=== PATIENT | male | born 1960 | race Caucasian/White ===

== ENCOUNTER 2020-11-05 12:28 | Emergency (ER) | payer BC ==
--- NOTE | 2020-11-05 12:48 | EDM.PDOC ---
ED HPI GENERAL MEDICAL PROBLEM - General Chief Complaint: Trauma Stated Complaint: [facility] Time Seen by Provider: 11/05/20 12:48 - History of Present Illness INITIAL COMMENTS - FREE TEXT/NARRATIVE: 60-year-old male brought in by [facility] after sustaining a head injury and neck injury. Around 1030 this morning the patient was ice fishing he slipped and fell backwards striking the back of his head. Patient does not have significant pain but has noticed significant weakness in his hands and to a lesser degree in his lower extremities. Has had no loss of bowel or bladder control. Patient cannot recall if he had loss of consciousness. He did have a large hematoma form the back of his scalp left side and does have a laceration there. It has not been bleeding too bad. Patient denies drug use or alcohol use. Posterior Head Pain Score (Numeric/FACES): 2 - Related Data Allergies Allergy/AdvReac Type Severity Reaction Status Date / Time No Known Allergies Allergy Verified 11/05/20 12:43 Home Meds: Home Meds . [No Known Home Meds] 11/05/20 [History] Review of Systems - Review of Systems Review Of Systems: See Below Constitutional: Reports: No Symptoms Eyes: Reports: No Symptoms Ears: Reports: No Symptoms Nose: Reports: No Symptoms Mouth/Throat: Reports: No Symptoms Respiratory: Reports: No Symptoms Cardiovascular: Reports: No Symptoms GI/Abdominal: Reports: No Symptoms Genitourinary: Reports: No Symptoms Musculoskeletal: Reports: Neck Pain Skin: Reports: No Symptoms Neurological: Reports: Headache, Weakness. Denies: Pre-Existing Deficit, Seizure, Syncope ED EXAM, GENERAL - Physical Exam Exam: See Below Exam Limited By: No Limitations General Appearance: Alert, No Apparent Distress, Other (Arrives with c-collar in place via EMS. The patient was logrolled with the assistance of several staff members early in the exam process to examine his back and what was accessible on his neck.) Eye Exam: Bilateral Eye: EOMI, Normal Inspection, Periorbital Changes Ears: Normal External Exam, Normal Canal, Hearing Grossly Normal, Normal TMs Nose: Normal Inspection, Normal Mucosa, No Blood Throat/Mouth: Normal Inspection, Normal Lips, Normal Teeth, Normal Gums, Normal Oropharynx, Normal Voice, No Airway Compromise Head: Other (He has a hematoma developing in the left occipital area no crepitation with palpation of the scalp is a laceration over the hematoma) Neck: Other (Collar in place no palpable bony tenderness however in the accessible areas) Respiratory/Chest: No Respiratory Distress, Lungs Clear, Normal Breath Sounds Cardiovascular: Normal Peripheral Pulses, Regular Rate, Rhythm, No Edema, No Mur mur GI/Abdominal: Normal Bowel Sounds, Soft, Non-Tender Back Exam: Normal Inspection, Other (The patient because of weakness is unable to completely sit up on his own and it is difficult with assistance.). No: CVA Tenderness (L), CVA Tenderness (R), Vertebral Tenderness Extremities: Normal Inspection, Other (His weakness in his distal upper extremities and his feet and lower legs seem to be weaker than they should be) Psychiatric: Normal Affect, Normal Mood Lymphatic: No Adenopathy Course - Vital Signs Last Recorded V/S: Last Vital Signs Temp 36.8 C 11/05/20 12:34 Pulse 98 11/05/20 12:34 Resp 14 11/05/20 12:34 BP 155/101 H 11/05/20 12:34 Pulse Ox 94 L 11/05/20 12:34 - Orders/Labs/Meds Orders: Active Orders 24 hr Category Date Time Status Vaccines to be Administered [RC] PER UNIT ROUTINE Care 11/05/20 15:37 Ordered CORONAVIRUS COVID-19 HERLINDA [MOLEC] Stat Lab 11/05/20 15:15 Ordered Dextrose 5%-Lactated Ringers @ 125 MLS/HR(1,000ml) Med 11/05/20 15:45 Ordered Dextrose 5%-Lactated Ringers 1,000 ml IV ASDIRECTED Medication Orders Dextrose/Lactated Ringer's (Dextrose 5%-Lactated Ringers) 1,000 mls @ 125 mls/hr IV ASDIRECTED ISABELA Labs: Laboratory Tests 11/05/20 11/05/20 11/05/20 Range/Units 13:29 13:29 13:29 WBC 13.36 H (4.23-9.07) K/mm3 RBC 5.05 (4.63-6.08) M/mm3 Hgb 14.7 (13.7-17.5) gm/dl Hct 44.1 (40.1-51.0) % MCV 87.3 (79.0-92.2) fl MCH 29.1 (25.7-32.2) pg MCHC 33.3 (32.2-35.5) g/dl RDW Std Deviation 43.9 (35.1-43.9) fL Plt Count 252 (163-337) K/mm3 MPV 9.6 (9.4-12.3) fl Neut % (Auto) 86.0 H (34.0-67.9) % Lymph % (Auto) 5.7 L (21.8-53.1) % [place] % (Auto) 7.9 (5.3-12.2) % Eos % (Auto) 0.1 L (0.8-7.0) Baso % (Auto) 0.2 (0.1-1.2) % Neut # (Auto) 11.47 H (1.78-5.38) K/mm3 Lymph # (Auto) 0.76 L (1.32-3.57) K/mm3 [place] # (Auto) 1.06 H (0.30-0.82) K/mm3 Eos # (Auto) 0.02 L (0.04-0.54) K/mm3 Baso # (Auto) 0.03 (0.01-0.08) K/mm3 Manual Slide Review Abnormal smear PT 10.9 (9.7-12.0) SECONDS INR 1.02 APTT 25.4 (21.7-31.4) SECONDS Sodium 137 (136-145) mEq/L Potassium 3.9 (3.5-5.1) mEq/L Chloride 103 (98-107) mEq/L Carbon Dioxide 25 (21-32) mEq/L Anion Gap 12.9 (5-15) BUN 17 (7-18) mg/dL Creatinine 1.1 (0.7-1.3) mg/dL Est Cr Clr Drug Dosing 76.06 mL/min Estimated GFR (MDRD) > 60 (>60) mL/min BUN/Creatinine Ratio 15.5 (14-18) Glucose 121 H (74-106) mg/dL Calcium 9.4 (8.5-10.1) mg/dL Total Bilirubin 0.6 (0.2-1.0) mg/dL AST 27 (15-37) U/L ALT 61 (16-63) U/L Alkaline Phosphatase 114 (46-116) U/L Total Protein 7.0 (6.4-8.2) g/dl Albumin 3.8 (3.4-5.0) g/dl Globulin 3.2 gm/dL Albumin/Globulin Ratio 1.2 (1-2) Urine Color (Yellow) Urine Appearance (Clear) Urine pH (5.0-8.0) Ur Specific [place] (1.005-1.030) Urine Protein (Negative) Urine Glucose (UA) (Negative) Urine Ketones (Negative) Urine Occult Blood (Negative) Urine Nitrite (Negative) Urine Bilirubin (Negative) Urine Urobilinogen (0.2-1.0) Ur Leukocyte Esterase (Negative) Ethyl Alcohol 0.00 (0.00) gm% 11/05/20 Range/Units 14:48 WBC (4.23-9.07) K/mm3 RBC (4.63-6.08) M/mm3 Hgb (13.7-17.5) gm/dl Hct (40.1-51.0) % MCV (79.0-92.2) fl MCH (25.7-32.2) pg MCHC (32.2-35.5) g/dl RDW Std Deviation (35.1-43.9) fL Plt Count (163-337) K/mm3 MPV (9.4-12.3) fl Neut % (Auto) (34.0-67.9) % Lymph % (Auto) (21.8-53.1) % [place] % (Auto) (5.3-12.2) % Eos % (Auto) (0.8-7.0) Baso % (Auto) (0.1-1.2) % Neut # (Auto) (1.78-5.38) K/mm3 Lymph # (Auto) (1.32-3.57) K/mm3 [place] # (Auto) (0.30-0.82) K/mm3 Eos # (Auto) (0.04-0.54) K/mm3 Baso # (Auto) (0.01-0.08) K/mm3 Manual Slide Review PT (9.7-12.0) SECONDS INR APTT (21.7-31.4) SECONDS Sodium (136-145) mEq/L Potassium (3.5-5.1) mEq/L Chloride (98-107) mEq/L Carbon Dioxide (21-32) mEq/L Anion Gap (5-15) BUN (7-18) mg/dL Creatinine (0.7-1.3) mg/dL Est Cr Clr Drug Dosing mL/min Estimated GFR (MDRD) (>60) mL/min BUN/Creatinine Ratio (14-18) Glucose (74-106) mg/dL Calcium (8.5-10.1) mg/dL Total Bilirubin (0.2-1.0) mg/dL AST (15-37) U/L ALT (16-63) U/L Alkaline Phosphatase (46-116) U/L Total Protein (6.4-8.2) g/dl Albumin (3.4-5.0) g/dl Globulin gm/dL Albumin/Globulin Ratio (1-2) Urine Color Yellow (Yellow) Urine Appearance Clear (Clear) Urine pH 6.5 (5.0-8.0) Ur Specific [place] 1.020 (1.005-1.030) Urine Protein Negative (Negative) Urine Glucose (UA) Negative (Negative) Urine Ketones 2+ H (Negative) Urine Occult Blood Negative (Negative) Urine Nitrite Negative (Negative) Urine Bilirubin Negative (Negative) Urine Urobilinogen 0.2 (0.2-1.0) Ur Leukocyte Esterase Negative (Negative) Ethyl Alcohol (0.00) gm% Meds: Medications Generic Name Dose Route Start Last Admin Trade Name Freq PRN Reason Stop Dose Admin Dextrose/Lactated Ringer's 1,000 mls @ 125 mls/hr 11/05/20 15:45 Dextrose 5%-Lactated Ringers IV ASDIRECTED ISABELA Discontinued Medications Generic Name Dose Route Start Last Admin Trade Name Freq PRN Reason Stop Dose Admin Dexamethasone 10 mg 11/05/20 15:19 Decadron IVPUSH 11/05/20 15:20 ONETIME ONE Diphtheria/Tetanus/Acell Pertussis 0.5 ml 11/05/20 15:36 Adacel IM 11/05/20 15:37 .ONCE ONE - Re-Assessments/Exams Free Text/Narrative Re-Assessment/Exam: 11/05/20 15:43 The labs are really not to contributory. The patient has a laceration versus abrasion on the left occipital area nothing appreciated needs to be repaired at this time however we have limited staff for keeping him in that position and stabilizing his C-spine at the same time so I reported this to 1 call at [facility]. I did talk to Dr. Zepeda who recommended given 10 mg of Decadron and then 6 mg every 4 hours to have the patient transferred to the emergency room where he can have an MRI obtained. This is been set up his head CT was unremarkable for acute changes he is got some age-related degeneration change noted on his C-spine this concerning for no acute fracture however he is got very prominent posterior spurring causing severe central canal stenosis at C2-3 through C7-T1 and mild posterior neural central stenosis is noted at T1-T2 lumbar spine CT is unremarkable chest abdomen pelvis CT is unremarkable for acute changes. He is got some degenerative changes noted throughout but nothing that should be causing his symptoms. Dr. Field is the accepting physician at the emergency room at [facility] and [facility]. 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 - Discharge Information Forms: ED Department Discharge Sepsis Event Note (ED) - Evaluation Sepsis Screening Result: No Definite Risk - Focused Exam Vital Signs: Vital Signs Temp Pulse Resp BP Pulse Ox 11/05/20 12:34 36.8 C 98 14 155/101 H 94 L - My Orders Last 24 Hours: My Active Orders 11/05/20 15:15 CORONAVIRUS COVID-19 HERLINDA [MOLEC] Stat 11/05/20 15:37 Vaccines to be Administered [RC] PER UNIT ROUTINE 11/05/20 15:45 Dextrose 5%-Lactated Ringers @ 125 MLS/HR(1,000ml) Dextrose 5%-Lactated Ringers 1,000 ml IV ASDIRECTED - Assessment/Plan Last 24 Hours: My Active Orders 11/05/20 15:15 CORONAVIRUS COVID-19 HERLINDA [MOLEC] Stat 11/05/20 15:37 Vaccines to be Administered [RC] PER UNIT ROUTINE 11/05/20 15:45 Dextrose 5%-Lactated Ringers @ 125 MLS/HR(1,000ml) Dextrose 5%-Lactated Ringers 1,000 ml IV ASDIRECTED
--- NOTE | 2020-11-05 14:49 | CT ---
CT cervical spine Technique: Multiple axial sections were obtained from above C1 inferiorly to the bottom of T2. Reconstructed coronal and sagittal images were obtained. Comparison: No previous study. Findings: Degenerative change is noted between the dens and anterior arch of C1. Mild disc space narrowing is noted at C4-5, C5-6 and C6-7. Diffuse posterior osteophytes are seen from C2-3 through T1-2. Slight anterior osteophytes are noted at C4-5 through C6-7. Vertebral body heights are maintained. Posterior spurring cause fairly significant central canal stenosis at C2-3 through C7-T1. There is mild central canal stenosis at T2-3. No discrete neural foraminal stenosis is appreciated. No acute fracture is appreciated. No abnormal subluxation is seen. Impression: 1. Very prominent posterior spurring causing severe central canal stenosis at C2-3 through C7-T1. Mild posterior neural central stenosis is noted at T1-2. 2. Other degenerative change as noted above. 3. No acute fracture is appreciated. No abnormal subluxation is seen. Diagnostic code #3
--- NOTE | 2020-11-05 14:55 | CT ---
CT chest Technique: Multiple axial sections were obtained from above the lung apices inferiorly through the lung bases. Intravenous contrast was utilized. Reconstructed coronal and sagittal images were obtained. Comparison: No prior chest imaging is available. Findings: Thoracic aorta shows minimal atherosclerotic calcification without aneurysm. Mediastinum shows no adenopathy. Hilar regions show no adenopathy. No pericardial thickening is identified. Lungs appear to be clear. No acute parenchymal change is appreciated. No pleural effusions or pneumothorax are appreciated. Bone window settings were reviewed which show diffuse anterior osteophytes within the thoracic spine and lumbar spine. No definite central canal stenosis is seen other than T1-2. No acute osseous finding is appreciated. Impression: 1. Findings as noted above. 2. Nothing acute is seen. Diagnostic code #2 CT abdomen and pelvis Technique: Multiple axial sections were obtained from above the lung apices inferiorly through the lung bases. Intravenous contrast was utilized. No oral contrast was given. Reconstructed coronal and sagittal images were obtained. Delayed images were also obtained. Findings: Liver and spleen show no focal abnormality. Adrenal glands show no nodule. Pancreas shows no abnormality. Gallbladder contains no calcified gallstones. Kidneys show symmetric contrast enhancement with no hydronephrosis or mass. Aorta shows no aneurysm. Mild atherosclerotic calcification is seen within the aorta. No retroperitoneal adenopathy or mesenteric abnormalities are seen. Small fat-containing left inguinal hernia is seen with a minimal amount of sigmoid colon extending into the hernia. Appendix is seen which is normal. Delayed images were also obtained through the abdomen and pelvis which show good excretion into both ureters and bladder. Bone window settings were reviewed which show scattered degenerative change with anterior osteophytes. No acute finding is appreciated. Impression: 1. Left inguinal hernia. 2. Other findings believed to be incidental as noted above. 3. Nothing acute is appreciated. Diagnostic code #2
--- NOTE | 2020-11-05 15:00 | CT ---
Head CT Technique: Multiple axial sections through the brain were obtained. Intravenous contrast was not utilized. Reconstructed coronal and sagittal images were obtained. Findings: Scalp hematoma is seen posteriorly on the left side. Ventricles along with basal cisterns and sulci over the convexities are minimally prominent. No abnormal parenchymal densities are definitely seen. No evidence of intracranial hemorrhage. No midline shift or mass-effect is appreciated. Bone window settings were reviewed. Visualized mastoid sinuses show nothing acute. Visualized paranasal sinuses show nothing acute. No acute calvarial abnormality is appreciated. Impression: 1. Soft tissue swelling within the posterior left scalp. 2. Minimal generalized atrophy. 3. Nothing acute is appreciated on noncontrast head CT. Diagnostic code #2
--- NOTE | 2020-11-05 15:00 | CT ---
CT lumbar spine Technique: Multiple axial sections through the lumbar spine were obtained. Reconstructed coronal and sagittal images were obtained. Findings: There is mild disc space narrowing posteriorly throughout the spine. No fracture is appreciated. Scattered anterior osteophytes are present. At L4-5 there is posterior ridging and posterior diffuse disc bulging being seen causing a moderate degree of central canal stenosis. Bilateral neural foraminal stenosis is also seen particularly on the right side at the L4-5 level. At L5-S1 there is fairly severe disc space narrowing seen with mild central canal stenosis. Impression: 1. Degenerative change as noted above. 2. Nothing acute is appreciated on CT study of the lumbar spine. Diagnostic code #2
--- NOTE | 2020-11-05 15:11 | CT ---
CT thoracic spine Technique: Multiple axial sections through the thoracic spine were obtained. Reconstructed coronal and sagittal images were obtained. Findings: Posterior spurring is noted at T1-2 causing mild central canal stenosis. Slight posterior osteophytes are noted at T6-7 which minimally indent the anterior thecal sac. More prominent posterior spurring is noted at T8-9 which more significantly indents the anterior thecal sac and causes minimal central canal stenosis. Diffuse bridging anterior osteophytes are noted at T3-4 through T12-L1. Neural foramina are felt to be patent. There is a slightly ill defined right transverse process at L1 which appears to be old and most likely developmental. No fracture is appreciated within the thoracic spine. Impression: 1. Diffuse degenerative change. Most prominent findings at T8-9 causing minimal central canal stenosis as well as posterior spurring at T1-2 causing mild central canal stenosis. 2. Slightly ill defined right transverse process of L1 which is most likely developmental. 3. Nothing acute is appreciated on CT study of the thoracic spine. Diagnostic code #3
[2020-11-05] MEDS ORDERED: Dexamethasone 10 MG/ML SDV IVPUSH ONE (15:19)
[2020-11-05] MEDS ORDERED: Diphtheria,Pertussis(Acell),Tetanus Vaccine 0.5 ML Syringe IM ONE ×2 (15:36→16:00)
[2020-11-05] MEDS ORDERED: Dextrose 5%-Lactated Ringers 1,000 ML IV SCH (15:45)
== END 2020-11-05 17:35 ==
LOC: JD.ED 12:28
DX: S14.127A Central cord syndrome at C7 level of cervical spinal cord, initial encounter (principal); S01.01XA Laceration without foreign body of scalp, initial encounter; Z20.822 Contact with and (suspected) exposure to COVID-19; Z23 Encounter for immunization; W01.10XA Fall on same level from slipping, tripping and stumbling with subsequent striking against unspecified object, initial encounter
CPT/HCPCS: 36415; 70450; 71260; 72125; 72128; 72131; 74177; 80053; 80179; 81003; 85025; 85610; 85730; 87635; 90471; 90715; 96374; 99285; J1100; J7121; 99284; U0002